=== PATIENT | male | born 1960 | race Caucasian/White ===

== ENCOUNTER 2020-01-02 20:49 | Emergency (ER) | payer MEDICARE ==
[~2020-01-02] VITALS: Ht 170.2 cm; Wt 167.7 kg
[~2020-01-02 20:49] MED LIST: ADALAT CC30 MG PO; AMARYL 2MG T2 MG/TAB PO; AMARYL PO; APRESOLINE50 MG PO; BENAZEPRIL; COUMADIN 5MG5 MG/TAB PO; COUMADIN 77.5 MG/TAB PO; DIGOXIN PO; FORTAMET500 MG PO; HYDROCHLOR50 MG PO; IBUPROFEN400 MG PO; LASIX 80MG TABL80 MG PO; MICRO-K 1010 MEQ PO; MULTAQ400 MG PO; POTASSIUM CH2 MEQ/ML; SEPTRA DS 8001 TAB PO
[2020-01-02 21:54] LABS: BASO % 0.2 % (0.0-2.0); EOS % 0.1 % (0-4.0); GRAN # 10.7 (1.4-6.5); GRAN % 78.2 % (42.2-75.2); HEMATOCRIT 38.5 % (42.0-52.0); HEMOGLOBIN 12.9 g/dl (13.5-18.0); LYMPH % 14.3 % (20.0-51.0); MEAN CELL VOLUME 85 fl (80.0-100.0); MEAN CORPUSCULAR HEMOGLOBIN 28 pg (27.0-31.0); MEAN CORPUSCULAR HGB CONC 34 g/dl (33.0-37.0); MEAN PLATELET VOLUME 10.6 fl (7.4-10.4); MONO % 6.9 % (1.7-9.3); PLATELET COUNT 270 K/mm3 (130-400); RED BLOOD COUNT 4.54 M/mm3 (4.20-5.60); REDCELL DISTRIBUTION WIDTH-CV 12.7 % (11.5-14.5)
[2020-01-02 22:01] LABS: PROTHROMBIN TIME 45.1 SECONDS (9.7-12.8)
[2020-01-02 22:06] LABS: ALBUMIN 3.6 gm/dL (3.5-5.0); BILIRUBIN,TOTAL 0.8 mg/dL (0.0-1.0); CALCIUM 8.3 mg/dL (8.4-10.2); CREATININE, serum 1.13 (0.66-1.25); TOTAL PROTEIN 7.3 gm/dL (6.4-8.2)
[2020-01-02 22:15] LABS: TROPONIN-I 0.013 ng/mL (0.000-0.035)
[2020-01-02 22:16] LABS: C-REACTIVE PROTEIN 18.7 mg/dL (0.0-0.9)
[2020-01-02 22:56] LABS: COLLECTION METHOD CLEAN CATCH
[2020-01-02 23:06] LABS: PH 5 (5-8); SQUAMOUS EPITHELIAL 0-2 /hpf; URINE APPEARANCE Clear; URINE BACTERIA Occasional /hpf; URINE BILIRUBIN Negative (NEGATIVE); URINE BLOOD Negative (NEGATIVE); URINE COLOR Yellow; URINE GLUCOSE 2+ (NEGATIVE); URINE KETONE Negative (NEGATIVE); URINE LEUKOCYTE ESTERASE Trace (NEGATIVE); URINE NITRATE Negative (NEGATIVE); URINE PROTEIN(semi-quant) 1+ (NEGATIVE)
[2020-01-03 00:24] VITALS: TEMP 98.4
[2020-01-03 04:25] VITALS: BP 191/120; PULSE 78
== END 2020-01-03 04:45 | disposition short-term general hospital (02) ==
LOC: COL.ER 20:49
PROVIDERS: Emergency Medicine
DX: K62.89 Other specified diseases of anus and rectum (principal); R10.2 Pelvic and perineal pain; N39.0 Urinary tract infection, site not specified; E11.65 Type 2 diabetes mellitus with hyperglycemia; I10 Essential (primary) hypertension; I48.91 Unspecified atrial fibrillation; Z87.891 Personal history of nicotine dependence; Z79.84 Long term (current) use of oral hypoglycemic drugs; Z79.01 Long term (current) use of anticoagulants
CPT/HCPCS: C9132; J1200; J2405; J2543; J3370; J7030; J7040; Q9967

== ENCOUNTER 2021-06-11 19:23 | Emergency (ER) | payer OTHER, MEDICARE ==
[~2021-06-11] VITALS: Ht 177.8 cm; Wt 152.3 kg
[2021-06-11 21:45] VITALS: BP 165/103; PULSE 77; TEMP 98
== END 2021-06-11 21:45 | disposition home or self-care (01) ==
LOC: COL.ER 19:23
DX: S09.90XA Unspecified injury of head, initial encounter (principal); S89.91XA Unspecified injury of right lower leg, initial encounter; S80.211A Abrasion, right knee, initial encounter; Z79.01 Long term (current) use of anticoagulants; V49.40XA Driver injured in collision with unspecified motor vehicles in traffic accident, initial encounter

== ENCOUNTER → 2023-05-15 | Outpatient (CLI) | payer MEDICARE ==
[2023-05-15 15:02] LABS: HEMATOCRIT 39.6 % (42.0-52.0); HEMOGLOBIN 13.5 g/dl (13.5-18.0); MEAN CELL VOLUME 85 fl (80.0-100.0); MEAN CORPUSCULAR HEMOGLOBIN 29 pg (27-31); MEAN CORPUSCULAR HGB CONC 34 g/dl (33.0-37.0); MEAN PLATELET VOLUME 10.2 fl (7.4-10.4); PLATELET COUNT 247 K/mm3 (130-400); RED BLOOD COUNT 4.65 M/mm3 (4.20-5.60); REDCELL DISTRIBUTION WIDTH-CV 14.1 % (11.5-14.5)
[2023-05-15 15:08] LABS: INR 1.6 (0.8-3.0); PROTHROMBIN TIME 17.8 SECONDS (9.7-12.8)
[2023-05-15 15:10] LABS: PARTIAL THROMBOPLASTIN TIME 35.1 SECONDS (26.0-37.0)
[2023-05-15 15:15] LABS: CALCIUM 9.3 mg/dL (8.4-10.2); CREATININE, serum 1.59 mg/dL (0.72-1.25); POTASSIUM 4.3 mmol/L (3.5-4.5)
== END ==
LOC: COL.LAB 14:37
DX: L97.911 Non-pressure chronic ulcer of unspecified part of right lower leg limited to breakdown of skin (principal)

== ENCOUNTER 2023-06-08 20:16 | Emergency (ER) | payer MEDICARE ==
[~2023-06-08] VITALS: Ht 175.3 cm; Wt 150.0 kg
[2023-06-08 20:22] VITALS: TEMP 98
[2023-06-08 20:49] LABS: INR 4.4 (0.8-3.0)
[2023-06-08 20:53] LABS: PROTHROMBIN TIME 45.6 SECONDS (9.7-12.8)
[2023-06-08] MEDS ORDERED: Phytonadione (Vitamin K) 5 MG/5 ML Oral Susp PO ONE (21:00)
[2023-06-08 21:05] VITALS: BP 164/96; PULSE 77
== END 2023-06-08 21:05 | disposition home or self-care (01) ==
LOC: COL.ER 20:16
PROVIDERS: Emergency Medicine
DX: R79.1 Abnormal coagulation profile (principal); I48.91 Unspecified atrial fibrillation; Z79.01 Long term (current) use of anticoagulants